=== PATIENT | female | born 1975 | race Two or more races ===

== ENCOUNTER 2022-10-01 09:16 | Outpatient (CLI) | payer OTHER | END 2022-10-01 09:18 | disposition home or self-care (01) | LOC: SONOGRAMA 09:16 | PROVIDERS: ATTEND Pathology Anatomic Pathology | DX: D34 Benign neoplasm of thyroid gland (principal); E04.9 Nontoxic goiter, unspecified ==

== ENCOUNTER 2023-11-24 15:41 | Emergency (ER) | payer OTHER ==
[~2023-11-24] VITALS: Ht 165.1 cm; Wt 80.3 kg
[2023-11-24] MEDS ORDERED: SYNTHROID200 MCG (15:55)
[2023-11-24] MEDS ORDERED: METFORMIN HCL850 M1 (15:55)
[2023-11-24] MEDS ORDERED: 0.9 % SODIUM CHLORIDE 1,000 ML IV ONE (17:00)
[2023-11-24 17:21] LABS: HEMATOCRIT 27.8 % (36.0-45.00); HEMOGLOBIN 9.7 g/dL (12.0-15.00); MEAN CELL VOLUME 88.9 fL (80.00-100.00); MEAN CORPUSCULAR HEMOGLOBIN 30.9 pg (27.00-32.0); MEAN CORPUSCULAR HGB CONC 34.8 g/dl (32.0-36.0); PH,URINE 6.5 (5.0-8.0); PLATELET COUNT 255 K/uL (150-450); RED BLOOD COUNT 3.13 M/uL (4.00-6.00); RED CELL DISTRIBUTION WIDTH 14.6 % (11.5-14.5); URINE APPEARANCE Clear; URINE BILIRRUBIN Negative (NEGATIVE); URINE BLOOD Small; URINE COLOR Yellow; URINE GLUCOSE Negative (NEGATIVE); URINE LEUKOCYTE Moderate; URINE NITRATE Negative; URINE PROTEIN 30 (NEGATIVE); URINE UROBILINOGEN 0.2 E.U./dl
[2023-11-24 17:25] LABS: URINE BACTERIA 188.9 uL (0.0-1933); URINE EPITHELIAL CELLS 12.6 uL (0.0-38.8); URINE RBC 20.7 uL (0.0-20.8); URINE WBC 115.6 uL (0.0-23.2)
[2023-11-24 17:48] LABS: ALBUMIN 2.4 gm/dL (3.4-5.0); BILIRUBIN TOTAL 0.81 mg/dL (0.3-1.2); CREATININE SERUM 1.01 mg/dL (0.55-1.02); GFR 58.75; GLOBULINA 3.4 G/DL (2.4-3.5); POTASSIUM 3.14 mEq/L (3.5-5.1); TOTAL PROTEIN 5.8 gm/dL (6.4-8.2)
[2023-11-24] MEDS ORDERED: KETOROLAC TROMETHAMINE 30 MG VIAL IM ONE (18:00)
[2023-11-24] MEDS ORDERED: CEFTRIAXONE SODIUM 1,000 MG VIAL IV ONE (18:00)
[2023-11-24] MEDS ORDERED: KETOROLAC TROMETHAMINE 15 MG VIAL IV ONE (18:00)
== END 2023-11-24 19:43 | disposition home or self-care (01) ==
LOC: ER 15:42
PROVIDERS: General Practice
DX: N39.0 Urinary tract infection, site not specified (principal); E11.9 Type 2 diabetes mellitus without complications; Z79.84 Long term (current) use of oral hypoglycemic drugs; E03.9 Hypothyroidism, unspecified

== ENCOUNTER 2023-11-26 14:48 | Emergency (ER) | payer OTHER ==
[~2023-11-26] VITALS: Ht 165.1 cm; Wt 80.3 kg
[~2023-11-26 14:48] MED LIST: METFORMIN HCL850 M1; SYNTHROID200 MCG
[2023-11-26] MEDS ORDERED: ACETAMINOPHEN 500 MG GEL..CAP PO ONE (16:45)
[2023-11-26] MEDS ORDERED: FAMOTIDINE/PF 20 MG/2 ML VIAL IV ONE (16:45)
[2023-11-26] MEDS ORDERED: 0.9 % SODIUM CHLORIDE 500 ML IV ONE (16:45)
[2023-11-26 17:59] LABS: MEAN CELL VOLUME 90.2 fL (80.00-100.00); MEAN CORPUSCULAR HGB CONC 34.2 g/dl (32.0-36.0); PLATELET COUNT 274 K/uL (150-450); RED BLOOD COUNT 2.82 M/uL (4.00-6.00); RED CELL DISTRIBUTION WIDTH 14.7 % (11.5-14.5)
[2023-11-26 18:00] LABS: HEMATOCRIT 25.4 % (36.0-45.00); HEMOGLOBIN 8.7 g/dL (12.0-15.00); MEAN CORPUSCULAR HEMOGLOBIN 30.8 pg (27.00-32.0)
[2023-11-26 18:02] LABS: ALBUMIN 2.3 gm/dL (3.4-5.0); BILIRUBIN TOTAL 0.52 mg/dL (0.3-1.2); CALCIUM 8.3 mg/dL (8.5-10.1); CREATININE SERUM 1.06 mg/dL (0.55-1.02); GFR 55.57; GLOBULINA 4.4 G/DL (2.4-3.5); TOTAL PROTEIN 6.7 gm/dL (6.4-8.2)
[2023-11-26 18:04] LABS: PH,URINE 6.5 (5.0-8.0); URINE APPEARANCE Clear; URINE BILIRRUBIN Negative (NEGATIVE); URINE BLOOD Small; URINE COLOR Dark Yellow; URINE GLUCOSE Negative (NEGATIVE); URINE LEUKOCYTE Small; URINE NITRATE Negative; URINE PROTEIN Trace (NEGATIVE)
[2023-11-26 18:05] LABS: POTASSIUM 2.95 mEq/L (3.5-5.1)
[2023-11-26 18:07] LABS: URINE BACTERIA 59.2 uL (0.0-1933); URINE EPITHELIAL CELLS 23.1 uL (0.0-38.8); URINE RBC 38.4 uL (0.0-20.8); URINE WBC 108.3 uL (0.0-23.2)
[2023-11-26] MEDS ORDERED: POTASSIUM BICARBONATE/CIT AC 25 MEQ TABLET.EFF PO ONE (19:45)
[2023-11-26] MEDS ORDERED: POTASSIUM CHLORIDE IN 0.9%NACL 1,000 ML IV ONE (19:45)
[2023-11-26 21:28] LABS: ABG PH 7.487 (7.35-7.45); ABG PO2 106.7 mmHg (80-100); ABG pCO2 32.2 mmHg (35-45); BASE EXCESS 1.2 mmol/l; SaO2 98.6 %
[2023-11-26 21:29] LABS: BICARBONATE 23.8 mmol/l (23-25); Tco2 24.8 mmol/l; allen test SATISFACTORY; o2 21 %; puncture site RADIAL LEFT
[2023-11-26] MEDS ORDERED: KETOROLAC TROMETHAMINE 30 MG VIAL IV ONE (22:15)
[2023-11-26] MEDS ORDERED: EFFER-K 25 MEQ25 MEQ PO (22:19)
[2023-11-26] MEDS ORDERED: PEPCID AC20 MG PO (22:19)
== END 2023-11-26 22:38 | disposition home or self-care (01) ==
LOC: ER 14:49
PROVIDERS: Nurse Practitioner Family
DX: U07.1 COVID-19 (principal); J10.1 Influenza due to other identified influenza virus with other respiratory manifestations; N39.0 Urinary tract infection, site not specified; E87.6 Hypokalemia; E11.9 Type 2 diabetes mellitus without complications; Z79.84 Long term (current) use of oral hypoglycemic drugs; E03.9 Hypothyroidism, unspecified

== ENCOUNTER 2024-09-08 18:43 | Emergency (ER) | payer OTHER ==
[~2024-09-08] VITALS: Ht 165.1 cm; Wt 81.6 kg
[~2024-09-08 18:43] MED LIST changes: +EFFER-K 25 MEQ25 MEQ PO; +PEPCID AC20 MG PO
[2024-09-08 18:58] VITALS: BP 130/74; O2SAT 99
[2024-09-08 20:41] LABS: HEMATOCRIT 36.3 % (36.0-45.00); HEMOGLOBIN 12.2 g/dL (12.0-15.00); MEAN CELL VOLUME 93.7 fL (80.00-100.00); MEAN CORPUSCULAR HEMOGLOBIN 31.4 pg (27.00-32.0); MEAN CORPUSCULAR HGB CONC 33.5 g/dl (32.0-36.0); PLATELET COUNT 369 K/uL (150-450); RED BLOOD COUNT 3.87 M/uL (4.00-6.00); RED CELL DISTRIBUTION WIDTH 14.4 % (11.5-14.5)
[2024-09-08 21:04] LABS: INR 0.94; PARTIAL THROMBOPLASTIN TIME 29.3 SECONDS (22.0-34.0); PROTHROMBIN TIME 10.3 SECONDS (9.0-11.5)
[2024-09-08 21:19] LABS: ALBUMIN 3.7 gm/dL (3.4-5.0); BILIRUBIN TOTAL 0.3 mg/dL (0.3-1.2); CALCIUM 9.4 mg/dL (8.5-10.1); CREATININE SERUM 0.65 mg/dL (0.55-1.02); GFR 97.28; GLOBULINA 3.6 G/DL (2.4-3.5); POTASSIUM 4.37 mEq/L (3.5-5.1); TOTAL PROTEIN 7.3 gm/dL (6.4-8.2)
== END 2024-09-08 22:44 | disposition home or self-care (01) ==
LOC: ER 18:44
PROVIDERS: Emergency Medicine
DX: N93.9 Abnormal uterine and vaginal bleeding, unspecified (principal); R10.2 Pelvic and perineal pain; E03.8 Other specified hypothyroidism

== ENCOUNTER 2024-12-21 09:22 | Outpatient (CLI) | payer OTHER | END 2024-12-21 09:38 | disposition home or self-care (01) | LOC: SONOGRAMA 09:22 | PROVIDERS: ATTEND Specialist | DX: M70.21 Olecranon bursitis, right elbow (principal) ==

== ENCOUNTER 2024-12-24 06:40 | Day surgery (SDC) | payer OTHER ==
[2024-12-16 09:41] VITALS: BP 134/80
[2024-12-16 10:52] LABS: INR 0.95
[~2024-12-24] VITALS: Ht 165.1 cm; Wt 81.6 kg
[2024-12-24] MEDS ORDERED: POVIDONE-IODINE 118 ML BOTT TOP ONE (11:45)
[2024-12-24] MEDS ORDERED: CEFAZOLIN SODIUM 1,000 MG VIAL IV ONE (11:45)
[2024-12-24] MEDS ORDERED: DOXYCYCLINE HY100 M2 PO (12:05)
[2024-12-24] MEDS ORDERED: IBU600 MG PO (12:05)
== END 2024-12-24 17:15 | disposition home or self-care (01) ==
LOC: CIR.AMB 06:40
PROVIDERS: ATTEND Obstetrics & Gynecology
DX: D25.0 Submucous leiomyoma of uterus (principal); N84.0 Polyp of corpus uteri